=== PATIENT | female | born 1975 | race Caucasian/White ===

== ENCOUNTER 2018-10-13 20:07 | Emergency (ER) | payer SELFPAY ==
[~2018-10-13] VITALS: Ht 172.7 cm; Wt 56.8 kg
[2018-10-13 20:09] VITALS: Ht 172.7 cm; Wt 56.8 kg
[2018-10-13] MEDS ORDERED: LIBRIUM25 MG PO (20:14)
[2018-10-13] MEDS ORDERED: BACLOFEN20 M1 PO (20:15)
[2018-10-13 21:00] LABS: BASOPHILS 0.2 % (0-2); HEMATOCRIT 34.3 % (36.0-48.0); HEMOGLOBIN 11.5 g/dL (12-16); IMMATURE GRANULOCYTES 0.2 % (0-5); LYMPHOCYTES 29.9 % (15-50); MCH 30.7 pg (26.0-34.0); MCHC 33.5 g/dL (31.0-37.0); MCV 91.5 fL (80.0-100.0); MEAN PLATELET VOLUME 9.9 fL (7.4-10.4); MONOCYTES 7.3 % (2-11); NEUTROPHILS 56.4 % (40-80); PLATELET COUNT 265 10x3/uL (130-400); RBC 3.75 10x6/uL (4.00-5.40); RDW 13.7 % (11.5-14.5); WBC 5.5 10x3/uL (4.8-10.8)
[2018-10-13 21:11] LABS: APPEARANCE CLEAR (CLEAR); BILIRUBIN NEGATIVE (NEGATIVE); COLOR STRAW (YELLOW); GLUCOSE NEGATIVE (NEGATIVE); KETONE NEGATIVE (NEGATIVE); NITRITE NEGATIVE (NEGATIVE); PROTEIN NEGATIVE (NEGATIVE); SPECIFIC GRAVITY 1.005 (1.005-1.020); UROBILINOGEN NORMAL (NORMAL)
[2018-10-13 21:24] LABS: HCG SERUM NEGATIVE (NEGATIVE)
[2018-10-13 21:30] LABS: ALKALINE PHOSPHATASE 39 U/L (46-116); ALT (SGPT) 15 U/L (10-68); BILIRUBIN - TOTAL 0.12 mg/dL (0.2-1.3); CALC OSMOLALITY 280 mosm/kg (275-300); CALCIUM 8.3 mg/dL (8.5-10.1); CARBON DIOXIDE 26.9 mmol/L (21.0-32.0); CHLORIDE - SERUM 108 mmol/L (98-107); CREATININE - SERUM 0.7 mg/dL (0.6-1.3); GLUCOSE 87 mg/dL (74-106); POTASSIUM - SERUM 3.2 mmol/L (3.5-5.1); PROTEIN - SERUM 5.9 g/dL (6.4-8.2); SODIUM 142 mmol/L (136-145); UREA NITROGEN 9 mg/dL (7-18); eGFR NON AFRICAN AMERICAN > 90 mL/min (90-120)
[2018-10-13 21:33] LABS: AMYLASE - SERUM 71 U/L (25-115); LIPASE 351 U/L (73-393)
[2018-10-13 21:34] LABS: TROPONIN-I < 0.017 ng/mL (0.000-0.060)
[2018-10-13] MEDS ORDERED: ZOFRAN8 MG PO (23:08)
[2018-10-14 00:09] VITALS: BP 136/79
== END 2018-10-14 00:09 | disposition home or self-care (01) ==
LOC: D.ER 20:07
PROVIDERS: Emergency Medicine
DX: R10.31 Right lower quadrant pain (principal); F10.21 Alcohol dependence, in remission; E87.6 Hypokalemia; R11.2 Nausea with vomiting, unspecified